=== PATIENT | male | born 1965 | race Hispanic/Latino ===

== ENCOUNTER 2025-04-20 10:34 | Emergency (ER) | payer BC ==
[~2025-04-20] VITALS: Ht 182.9 cm; Wt 117.9 kg
[2025-04-20 11:25] LABS: IMMATURE GRANULOCYTE ABSOLUTE 0.04 K/uL (0-1); NUCLEATED RED BLOOD CELLS 0.0 % (0.0-0.19); PLATELET COUNT (AUTO) 252 K/uL (130-400); RED BLOOD CELL COUNT(AUTO) 5.83 MIL/uL (4.50-6.20); RED CELL DISTRIBUTION WIDTH 14.2 % (11.0-15.5); WHITE BLOOD COUNT (AUTO) 11.4 K/uL (4.8-10.8)
[2025-04-20 11:37] LABS: CREATININE 0.7 mg/dL (0.5-1.3); GLOMERULAR FILTR. RATE CALC 107.0 mL/min (>90); GLUCOSE,RANDOM 115.0 mg/dL (70-105); SODIUM SERUM 142.0 mmol/L (136-145); UREA NITROGEN, BLOOD 11.0 mg/dL (7-18)
[2025-04-20 11:47] LABS: APPEARANCE,URINE CLEAR (CLEAR); GLUCOSE, URINE (UA) >=1000 mg/dL (NEGATIVE); LEUKOCYTE ESTERASE ,URINE NEGATIVE Leu/uL (NEGATIVE); NITRATE,URINE NEGATIVE (NEGATIVE); OCCULT BLOOD,URINE NEGATIVE (NEGATIVE)
[2025-04-20 11:50] LABS: ADD UA MICROSCOPIC YES
--- NOTE | 2025-04-20 12:36 | HMCIMG ---
EXAM: US Abdomen, Right Upper Quadrant. CLINICAL HISTORY: epigastric pain TECHNIQUE: Right upper quadrant sonography performed with image documentation. COMPARISON: None provided. FINDINGS: LIVER: The liver is enlarged in size. The right hepatic lobe measures approximately 18 cm with mild increased echogenicity The main portal vein shows hepatopetal flow, with PSV measuring approximately 19 cm/sec GALLBLADDER: The gallbladder appears distended, measuring approximately 11 cm, with a calculus measuring approximately 2 cm in the gallbladder neck. The gallbladder wall thickness is approximately 2 mm. COMMON BILE DUCT: Within normal limits in size. PANCREAS: The distal pancreas is obscured by bowel gas. The visualized portion of the pancreas appears within normal limits. RIGHT KIDNEY: Normal renal contours. No renal mass or calculus. No hydronephrosis. The right kidney measures approximately 12.3 x 5.3 x 4.4 cm IMPRESSION: 1. Cholelithiasis with 2 cm gallbladder neck calculus. 2. Hepatomegaly with mild increased echogenicity, suggesting hepatic steatosis. /[place]
[2025-04-20 12:43] VITALS: BP 154/91; PULSE 84; RESP 19; TEMP 98.6; O2SAT 99
[2025-04-20 13:04] LABS: ASPARTATE AMINOTRANSFERASE 27.0 U/L (10-37); TOTAL PROTEIN, SERUM 7.5 g/dL (6.0-8.3)
--- NOTE | 2025-04-20 13:08 | ERN ---
ED Note History of Present Illness Stated Complaint: ABDOMINAL PAIN Chief Complaint: Abdominal Pain Time Seen by MD: 10:42 Dictation: 59-YEAR-OLD MALE PRESENTS TO ER COMPLAINTS OF EPIGASTRIC PAIN RADIATING TO THE BACK BOTH SIDES. PATIENT DENIES NAUSEA AND VOMITING OR FEVER. PATIENT DENIES SHORTNESS OF BREATH OR CHEST PAIN. Allergies: Coded Allergies: No Known Drug Allergies (Unverified Allergy, Unknown, 04/20/25) Past Medical History Past Medical History: Diabetes-Type II, Hypertension Surgical History: Other Surgical History Other: LAP BAND Review of System Dictation CONSTITUTIONAL: NEGATIVE FOR FEVER,CHILLS, AND WEIGHT LOSS EYES: NEGATIVE FOR INJURY, PAIN,REDNESS, AND DISCHARGE ENT: NEGATIVE FOR INJURY,PAIN OR SWELLING CARDIOVASCULAR: NEGATIVE FOR CHEST PAIN, PALPITATIONS, AND EDEMA RESPIRATORY: NEGATIVE FOR SHORTNESS OF BREATH, COUGH, WHEEZING, AND PLEURITIC CHEST PAIN ABDOMEN/GI: NEGATIVE FOR DIARRHEA, AND CONSTIPATION. POSITIVE FOR ABDOMINAL PAIN AND NAUSEA BACK: NEGATIVE FOR INJURY AND PAIN : NEGATIVE FOR INJURY, BLEEDING AND DISCHARGE MS/EXTREMITY: NEGATIVE FOR INJURY AND DEFORMITY. POSITIVE BACK PAIN SKIN: NEGATIVE FOR RASH, AND DISCOLORATION NEURO: NEGATIVE FOR HEADACHE, WEAKNESS, NUMBNESS, TINGLING, AND SEIZURE PSYCH: NEGATIVE FOR SUICIDE IDEATION, HOMICIDAL IDEATION, AND HALLUCINATIONS ALLERGY/IMMUNOLOGY: NEGATIVE FOR HIVES, RASH, AND ALLERGIES Initial Vital Sign VS Vital Signs Date Time Temp Pulse Resp B/P (MAP) Pulse Ox O2 Delivery O2 Flow Rate FiO2 04/20/25 10:35 98.1 91 18 179/97 98 Room Air 04/20/25 11:46 0 21 Physical Exam Dictation GENERAL: AWAKE, ALERT, NAD HEAD/FACE: NORMOCEPHALIC, ATRAUMATIC EYES: PERRL, EOMI, VISION AT BASELINE ENT: ORAL CAVITY CLEAR, TMS CLEAR, NO SIGNS OF INFECTION NECK: TRACHEA MIDLINE, SUPPLE, NO NUCHAL RIGIDITY CARDIOVASCULAR: RRR, NORMAL S1/S2, NO MRGS, NO JVD RESPIRATORY: CTAB, NO RESPIRATORY DISTRESS, NO RALES OR WHEEZES ABDOMEN: SOFT, NON-DISTENDED, NORMAL BOWEL SOUNDS,. POSITIVE TENDERNESS TO RIGHT UPPER QUADRANT SKIN: WARM, DRY, NORMAL TURGOR, NO RASH MS/EXTREMITY: PULSES EQUAL, NO CYANOSIS, NEUROVASCULAR INTACT, FROM NEURO: COAX4, GCS 15, STRENGTH 5/5, CN 2-12 INTACT, NORMAL CEREBELLAR EXAM, NORMAL GAIT, PSYCH: NORMAL BEHAVIOR, MOOD, AND AFFECT NORMAL Results (Laboratory/Radiology) Laboratory/Radiology Laboratory Tests Test 04/20/25 11:11 04/20/25 11:15 Urine Color COLORLESS (YELLOW) Urine Appearance CLEAR (CLEAR) Urine pH 7.5 (5.0-8.0) Urine Specific [place] 1.012 (1.001-1.031) Urine Protein 50 mg/dL (NEGATIVE) H Urine Glucose (UA) >=1000 mg/dL (NEGATIVE) H Urine Ketones 20 mg/dL (NEGATIVE) H Urine Occult Blood NEGATIVE (NEGATIVE) Urine Nitrate NEGATIVE (NEGATIVE) Urine Bilirubin NEGATIVE mg/dL (NEGATIVE) Urine Urobilinogen 0.2 mg/dL (0.2-1.0) Urine Leukocyte Esterase NEGATIVE [place]/uL Urine RBC None /HPF (0-1) Urine WBC 0-1 /HPF (0-1) Urine Bacteria RARE /HPF (None Seen) White Blood Count 11.4 K/uL (4.8-10.8) H Red Blood Count 5.83 MIL/uL (4.50-6.20) Hemoglobin 17.7 g/dL (14.0-18.0) Hematocrit 50.5 % (42-54) Mean Corpuscular Volume 86.6 fL (79-99) Mean Corpuscular Hemoglobin 30.4 pg (27.0-33.0) Mean Corpuscular Hemoglobin Concent 35.0 g/dL (32.0-36.0) Red Cell Distribution Width 14.2 % (11.0-15.5) Platelet Count 252 K/uL (130-400) Mean Platelet Volume 8.5 fL (7.5-10.5) Immature Granulocyte % (Auto) 0.4 % (0-1) Neutrophils (%) (Auto) 86.5 % (40.0-77.0) H Lymphocytes (%) (Auto) 7.4 % (21.0-51.0) L Monocytes (%) (Auto) 5.2 % (3.0-13.0) Eosinophils (%) (Auto) 0.1 % (0.0-8.0) Basophils (%) (Auto) 0.4 % (0.0-5.0) Neutrophils # (Auto) 9.9 K/uL (1.8-7.7) H Lymphocytes # (Auto) 0.8 K/uL (1.0-4.8) L Monocytes # (Auto) 0.6 K/uL (0.1-1.0) Eosinophils # (Auto) 0.01 K/uL (0.00-0.70) Basophils # (Auto) 0.04 K/uL (0.00-0.20) Absolute Immature Granulocyte (auto 0.04 K/uL (0-1) Nucleated Red Blood Cells 0.0 % (0.0-0.19) White Cell Morphology Comment See comments Sodium Level 142 mmol/L (136-145) Potassium Level 2.6 mmol/L (3.5-5.1) *L Chloride Level 102 mmol/L (101-111) Carbon Dioxide Level 29 mmol/L (21-32) Blood Urea Nitrogen 11 mg/dL (7-18) Creatinine 0.7 mg/dL (0.5-1.3) Glomerular Filtration Rate Calc 107 mL/min (>90) Random Glucose 115 mg/dL (70-105) H Total Calcium 8.5 mg/dL (8.5-10.1) Total Bilirubin 0.9 mg/dL (0.2-1.0) Direct Bilirubin 0.2 mg/dL (0.0-0.3) Aspartate Amino Transf (AST/SGOT) 27 U/L (10-37) Alanine Aminotransferase (ALT/SGPT) 57 U/L (12-78) Alkaline Phosphatase 78 U/L (50-136) Troponin I High Sensitivity 47 ng/L (4-75) Total Protein 7.5 g/dL (6.0-8.3) Albumin 4.2 g/dL (3.5-5.0) Amylase Level 57 U/L (25-115) Lipase 35 U/L (16-77) EKG: (+) NSR ED Course ED Course Orders Procedure Category Date Status Time Cbc With Differential LAB 04/20/25 Complete 11:06 Amylase LAB 04/20/25 Complete 11:06 Troponin I High LAB 04/20/25 Complete Sensitivity 11:06 Urinalysis Profile LAB 04/20/25 Complete 11:06 12 Lead Ekg Tracing- EKG 04/20/25 Logged Technical 11:06 Ketorolac PHA 04/20/25 Complete Tromethamine 30mg/Ml 11:30 Ondansetron 4mg Inj PHA 04/20/25 Complete (Zofran 4mg Inj) 11:30 Lipase LAB 04/20/25 Complete 11:06 Basic Metabolic Panel LAB 04/20/25 Complete 11:06 Us Abdominal Ruq\Ltd US 04/20/25 Resulted 11:09 Potassium Bicarb/Cit PHA 04/20/25 Complete Ac 25meq (K-Lyte Ta 12:00 Hepatic Function Panel LAB 04/20/25 Complete 12:20 Current Medications Medications (Trade) Dose Ordered Sig/Joey Route PRN Reason Start Time Stop Time Status Last Admin Dose Admin Ketorolac Tromethamine (toRADol) 30 mg ONCE ONCE IVP 04/20/25 11:30 04/20/25 11:31 DC 04/20/25 11:29 Ondansetron HCl (zoFRAN 4MG INJ) 4 mg ONCE ONCE IVP 04/20/25 11:30 04/20/25 11:31 DC 04/20/25 11:29 Potassium Bicarbonate (K-Lyte Tablet Eff 25 Meq Tablet.eff) 25 meq ONCE ONCE PO 04/20/25 12:00 04/20/25 12:01 DC 04/20/25 11:58 Vital Signs Date Time Temp Pulse Resp B/P (MAP) Pulse Ox O2 Delivery O2 Flow Rate FiO2 04/20/25 12:43 98.6 84 19 154/91 99 Room Air* 0 21 04/20/25 11:46 98.6 89 19 173/103 99 Room Air* 0 21 04/20/25 10:35 98.1 91 18 179/97 98 Room Air Medical Decision Making MDM MDM: DIFFERENTIAL DIAGNOSIS: CHOLECYSTITIS, CHOLELITHIASIS, PANCREATITIS, GASTRITIS RATIONALE: TESTS CONSIDERED AND ORDERED SECONDARY TO SHARED DECISION MAKING INCLUDE: LABS, ECG AND RADIOLOGY PREVIOUS OUTSIDE RECORDS REVIEWED: OLD ER VISITS. RISK OF COMPLICATION AND/OR MORBIDITY OR MORTALITY OF PATIENT MANAGEMENT: NONE MEDICATIONS-PER MEDICATION RECONCILIATION NEED FOR HOSPITALIZATION: PATIENT DOES NOT MEET CRITERIA FOR HOSPITALIZATION. NEED FOR EMERGENCY MAJOR/MINOR SURGERY: NO THERE ARE NO SOCIAL CONCERNS WITH THIS PATIENT. PRESCRIPTION DRUG MANAGEMENT PRESCRIPTIONS WILL INCLUDE SYMPTOMATIC CARE PATIENT'S PRIOR EXTERNAL MEDICAL RECORDS FROM OTHER ER VISITS WERE REVIEWED BY ME INDICATED. PRIOR TESTING AND RESULTS FROM PREVIOUS VISITS WERE REVIEWED. PRIOR TESTS WERE TAKEN INTO ACCOUNT WITH MEDICAL DECISION MAKING AND RESOURCE UTILIZATION, INDEPENDENT HISTORIAN/HISTORIANS WERE USED TO OBTAIN COMPLETE MEDICAL HISTORY. I INDEPENDENTLY INTERPRETED THE TEST THAT WERE PERFORMED, RESULTS WERE REVIEWED BY ME AND CONSIDERED FINDINGS ON RADIOLOGY IF ORDERED. PATIENT VSS, NAD, NONTOXIC, STABLE FOR DISCHARGE. PT GIVEN DISCHARGE INSTRUCTIONS IN [place]MAN TERMS AND UNDERSTOOD, ALL QUESTIONS ANSWERED. PT WILL FOLLOW UP WITH PCP AND RETURN TO THE ER IF WORSE. DX & DISP Disposition: Discharge Departure Impression: Primary Impression: Epigastric pain Additional Impression: Cholelithiasis Condition: Stable Additional Instructions: FOLLOW-UP WITH YOUR PCP IN 24-72 HOURS AND IN THE EVENT IF SYMPTOMS WORSEN OR AN EMERGENCY OVERNIGHT REPORT TO THE ED IMMEDIATELY Referrals: SELF,REFERRAL (PCP) KATHLEEN MANTILLA NP Apr 20, 2025 13:08
--- NOTE | 2025-04-20 15:21 | EKG ---
[facility] Test Date: 2025-04-20 Test Time: 11:13:18 Pat Name: LYLE SANTOS Department: [facility] Room: Gender: Cardiology Nurse: [facility] : 1965 Requested By: KATHLEEN MANTILLA Order Number: [id number] Reading MD: Clifford Perez Measurements Intervals [facility] Rate: 86 P: 34 [place]: 214 QRS: -47 QRSD: 113 T: 66 QT: 386 QTc: 463 Interpretive Statements Sinus rhythm Prolonged [place] interval Left ventricular hypertrophy Poor R wave progression Electronically Signed On 04-20-2025 15:25:42 CDT by Clifford Perez Please click the below link to view image of tracing.
== END 2025-04-20 13:16 | disposition home or self-care (01) ==
LOC: EDH 10:34
DX: K80.20 Calculus of gallbladder without cholecystitis without obstruction (principal); E11.9 Type 2 diabetes mellitus without complications; I10 Essential (primary) hypertension
CPT/HCPCS: 99284; 96374; 76705; 96375; 82150; 80076; 84484; 80048; 83690; 85025; 81001; 36415; 93005; J1885; J2405